=== PATIENT | male | born 1960 | race Caucasian/White ===

== ENCOUNTER 2024-01-26 12:07 | Inpatient (IN) | payer OTHER ==
[2024-01-26] VITALS (14 sets, daily range): BP systolic 99–135; BP diastolic 44–69; PULSE 58–84; RESP 14–18; TEMP 98.8; O2SAT 98–100
[~2024-01-26] VITALS: Ht 185.4 cm; Wt 67.3 kg
[2024-01-26] MEDS: dextrose 5%-1/2 normal saline 1,000 ML IV SCH (03:00)
[2024-01-26 14:05] LABS: BASOPHILS # (AUTO) 0.1 X10'3 (0-0.2); BASOPHILS % (AUTO) 0.5 % (0-1); EOSINOPHILS # (AUTO) 0.2 X10'3 (0-0.9); EOSINOPHILS % (AUTO) 1.5 % (0-6); HEMATOCRIT 45.6 % (42.0-52.0); HEMOGLOBIN 15.4 g/dl (14.0-17.9); LYMPHOCYTES # (AUTO) 2.3 X10'3 (1.1-4.8); LYMPHOCYTES % (AUTO) 23.1 % (21-51); MEAN CORPUSCULAR HEMOGLOBIN 30.2 PG (27.0-31.0); MEAN CORPUSCULAR HGB CONC 33.8 g/dL (33.0-36.5); MEAN CORPUSCULAR VOLUME 89.5 FL (78-98); MEAN PLATELET VOLUME 6.8 FL (7.4-10.4); MONOCYTES # (AUTO) 0.5 X10'3 (0-0.9); MONOCYTES % (AUTO) 5.2 % (2-12); NEUTROPHILS # (AUTO) 6.9 X10'3 (1.8-7.7); NEUTROPHILS % (AUTO) 69.7 % (42-75); PLATELET COUNT 256 X10'3 (140-440); RED CELL DISTRIBUTION WIDTH 14.8 % (11.5-14.5)
[2024-01-26 14:15] LABS: ALBUMIN 4.3 G/DL (3.4-5.0); ANION GAP 7 (8-16); BLOOD UREA NITROGEN 14 MG/DL (7-18); BUN/CREATININE RATIO 16.7 (10.0-20.0); CHLORIDE 104 MMOL/L (99-107); CREATININE 0.84 MG/DL (0.60-1.10); GLUCOSE 107 MG/DL (70-104); LIPASE 54 U/L (16-77); POTASSIUM 4.8 MMOL/L (3.5-5.1); SODIUM 141 MMOL/L (135-145); TOTAL CARBON DIOXIDE 30.3 MMOL/L (24-32); eCRCL 88 ML/MIN; eGFR > 90 ML/MIN
[2024-01-26] MEDS ORDERED: HYDROcodone/acetaminophen 5mg/325mg tablet PO PRN (17:40)
[2024-01-26] MEDS ORDERED: magnesium hydroxide 30ml (MOM) UD suspension PO PRN (17:40)
[2024-01-26] MEDS ORDERED: mag hydrox/Alum hydrox/simeth 30ml oral suspension PO PRN (17:40)
[2024-01-26] MEDS ORDERED: morphine 2 MG/ML inj. syringe IV PRN ×2 (17:40→18:30)
[2024-01-26] MEDS ORDERED: acetaminophen 325mg tablet PO PRN ×2 (17:40)
[2024-01-26] MEDS ORDERED: BUPIVAcaine/PF 2.5mg/ml (0.25%) 10ml vial ONE (17:51)
[2024-01-26] MEDS ORDERED: meperidine/PF 25mg/ml syringe IV PRN ×3 (18:30)
[2024-01-26] MEDS ORDERED: ringers solution, lacted 1,000 ML IV SCH (18:30)
[2024-01-26] MEDS ORDERED: morphine 4 MG/ML inj SYRINge IV PRN (18:30)
[2024-01-26] MEDS ORDERED: ondansetron/PF 4mg/2ml inj IV PRN ×2 (18:30→21:00)
[2024-01-26] MEDS ORDERED: proCHLORperazine 10 MG/2 ml inj IV PRN (18:30)
[2024-01-26] MEDS ORDERED: sevoflurane 250ml liquid IH ONE (18:49)
[2024-01-26] MEDS ORDERED: fentaNYL /PF 50mcg/ml 5ml ampule ONE (18:51)
[2024-01-26] MEDS ORDERED: midazolam 1 mg/ML 2ml injection ONE (18:51)
[2024-01-26] MEDS ORDERED: propofol inj 20 ML IV ONE (18:51)
[2024-01-26] MEDS ORDERED: rocuronium 10mg/ml inj IV ONE (18:56)
[2024-01-26] MEDS ORDERED: ceFAZolin 1000mg inj ONE ×2 (19:04)
[2024-01-26] MEDS: BUPIVAcaine/PF 2.5mg/ml (0.25%) 10ml vial IJ ONE (20:34)
[2024-01-26] MEDS ORDERED: glycopyrrolate 0.2mg/ml inj ONE (20:48)
[2024-01-26] MEDS ORDERED: dexamethasone sod phosphate 4mg/ml inj. ONE (20:48)
[2024-01-26] MEDS ORDERED: neostigmine methylsulfate 1 MG/ML 10ml vial ONE (20:48)
[2024-01-26] MEDS ORDERED: ondansetron/PF 4mg/2ml inj ONE (20:49)
[2024-01-26] MEDS ORDERED: naloxone 0.4 mg/ml inj IV PRN (21:00)
[2024-01-26] MEDS: temazepam 15mg capsule PO ONE (22:47)
[2024-01-26] MEDS: docusate sod 100mg capsule PO SCH (22:47)
[2024-01-26] MEDS: ceFAZolin/D5W- 1GM premix 50 ML IV SCH (23:21)
[2024-01-27] VITALS (10 sets, daily range): BP systolic 89–122; BP diastolic 46–70; PULSE 66–105; RESP 16–18; TEMP 97.6–98.5; O2SAT 95–99
[2024-01-27] MEDS ORDERED: ceFAZolin/D5W- 1GM premix 50 ML IV SCH
[2024-01-27] MEDS: morphine 2 MG/ML inj. syringe IV PRN (01:30)
[2024-01-27] MEDS: ondansetron/PF 4mg/2ml inj IV PRN (03:50)
[2024-01-27 08:56] LABS: BASOPHILS % (AUTO) 0.1 % (0-1); EOSINOPHILS % (AUTO) 0 % (0-6); HEMATOCRIT 35.7 % (42.0-52.0); HEMOGLOBIN 11.8 g/dl (14.0-17.9); LYMPHOCYTES % (AUTO) 6.6 % (21-51); MEAN CORPUSCULAR HEMOGLOBIN 29.9 PG (27.0-31.0); MEAN CORPUSCULAR HGB CONC 33.1 g/dL (33.0-36.5); MEAN CORPUSCULAR VOLUME 90.3 FL (78-98); MEAN PLATELET VOLUME 7.1 FL (7.4-10.4); MONOCYTES # (AUTO) 1.6 X10'3 (0-0.9); MONOCYTES % (AUTO) 10.7 % (2-12); NEUTROPHILS # (AUTO) 12.4 X10'3 (1.8-7.7); NEUTROPHILS % (AUTO) 82.6 % (42-75); PLATELET COUNT 253 X10'3 (140-440); RED BLOOD COUNT 3.95 X10'6 (4.70-6.10); RED CELL DISTRIBUTION WIDTH 14.5 % (11.5-14.5)
[2024-01-27 09:01] LABS: ALBUMIN 3.1 G/DL (3.4-5.0); ANION GAP 10 (8-16); BLOOD UREA NITROGEN 13 MG/DL (7-18); BUN/CREATININE RATIO 11.5 (10.0-20.0); CALCIUM 8.9 MG/DL (8.5-10.1); CHLORIDE 104 MMOL/L (99-107); CREATININE 1.13 MG/DL (0.60-1.10); GLUCOSE 186 MG/DL (70-104); POTASSIUM 4.6 MMOL/L (3.5-5.1); SODIUM 140 MMOL/L (135-145); TOTAL CARBON DIOXIDE 25.6 MMOL/L (24-32); eCRCL 65 ML/MIN; eGFR 66 ML/MIN
[2024-01-27] MEDS ORDERED: NO HOME MEDS (11:08)
[2024-01-27] MEDS: HYDROcodone/acetaminophen 10/325mg tab PO PRN (17:12)
[2024-01-27] MEDS: ceFOXitin 2GM-NS 100mL ADDvant 100 ML IV SCH (20:41)
[2024-01-28 06:56] VITALS: BP 91/37; PULSE 99; RESP 16; TEMP 98.7; O2SAT 97
[2024-01-28 08:00] VITALS: RESP 12
[2024-01-28 08:02] LABS: BASOPHILS % (AUTO) 0.2 % (0-1); EOSINOPHILS # (AUTO) 0.1 X10'3 (0-0.9); EOSINOPHILS % (AUTO) 0.7 % (0-6); HEMATOCRIT 25.4 % (42.0-52.0); HEMOGLOBIN 8.7 g/dl (14.0-17.9); LYMPHOCYTES # (AUTO) 1.8 X10'3 (1.1-4.8); LYMPHOCYTES % (AUTO) 21.5 % (21-51); MEAN CORPUSCULAR HEMOGLOBIN 30.4 PG (27.0-31.0); MEAN CORPUSCULAR HGB CONC 34.2 g/dL (33.0-36.5); MEAN CORPUSCULAR VOLUME 88.9 FL (78-98); MEAN PLATELET VOLUME 6.9 FL (7.4-10.4); MONOCYTES # (AUTO) 1.2 X10'3 (0-0.9); NEUTROPHILS # (AUTO) 5.5 X10'3 (1.8-7.7); NEUTROPHILS % (AUTO) 63.6 % (42-75); PLATELET COUNT 184 X10'3 (140-440); RED BLOOD COUNT 2.86 X10'6 (4.70-6.10); RED CELL DISTRIBUTION WIDTH 14.3 % (11.5-14.5); WHITE BLOOD COUNT 8.6 X10'3 (4.5-11.0)
[2024-01-28 08:18] LABS: ALBUMIN 2.7 G/DL (3.4-5.0); ANION GAP 4 (8-16); BLOOD UREA NITROGEN 13 MG/DL (7-18); BUN/CREATININE RATIO 16.5 (10.0-20.0); CALCIUM 8.5 MG/DL (8.5-10.1); CHLORIDE 103 MMOL/L (99-107); CREATININE 0.79 MG/DL (0.60-1.10); GLUCOSE 116 MG/DL (70-104); POTASSIUM 3.8 MMOL/L (3.5-5.1); SODIUM 138 MMOL/L (135-145); TOTAL CARBON DIOXIDE 30.6 MMOL/L (24-32); eCRCL 94 ML/MIN; eGFR > 90 ML/MIN
[2024-01-28 10:00] VITALS: BP 127/70; PULSE 93; RESP 12; TEMP 97.8; O2SAT 97
[2024-01-28] MEDS ORDERED: HYDR-3964 PO (10:21)
[2024-01-28] MEDS ORDERED: DOCU100C40 PO (10:21)
[2024-01-28 11:36] VITALS: RESP 18
== END 2024-01-28 17:19 | disposition home or self-care (01) | DRG 351 ==
LOC: ER 12:08 → ED HOLD 17:42 → ORTHO 4S 21:50
PROVIDERS: ADMIT Internal Medicine; ATTEND Internal Medicine
PROC: 0VBG0ZZ Excision of Left Spermatic Cord, Open Approach (ICD-10-PCS; 2024-01-26)
PROC: 0YU50JZ Supplement Right Inguinal Region with Synthetic Substitute, Open Approach (ICD-10-PCS; principal; 2024-01-26 18:49)
DX: K40.30 Unilateral inguinal hernia, with obstruction, without gangrene, not specified as recurrent (principal); D62 Acute posthemorrhagic anemia; D17.6 Benign lipomatous neoplasm of spermatic cord; F17.210 Nicotine dependence, cigarettes, uncomplicated; G62.9 Polyneuropathy, unspecified; N43.3 Hydrocele, unspecified; Z79.899 Other long term (current) drug therapy
CPT/HCPCS: 99285; Z7506; Z7508; 36415; 71045; 74176; 80048; 83690; 85025; 87081; 93005; A4215; A4618; A6258; A6449; A7000; C1781; G0378; J0690; J0694; J1100; J2250; J2270; J2405; J2704; J2710; J3010; J3490; J7120